=== PATIENT | female | born 1995 | race Caucasian/White ===

== ENCOUNTER → 2022-01-26 | Outpatient (CLI) | payer OTHER ==
[2022-01-26 10:41] LABS: CHOLESTEROL RISK RATIO 3.716 (<5)
== END ==
LOC: M LAB 09:44
PROVIDERS: ATTEND Student in an Organized Health Care Education/Training Program
DX: E78.5 Hyperlipidemia, unspecified (principal)

== ENCOUNTER → 2022-05-29 | Outpatient (CLI) | payer OTHER | LOC: M WHC 07:54 | PROVIDERS: ATTEND Student in an Organized Health Care Education/Training Program | DX: E28.2 Polycystic ovarian syndrome (principal) ==